=== PATIENT | female | born 1965 | race Caucasian/White ===

== ENCOUNTER → 2024-06-26 07:14 | Outpatient (REF) | payer OTHER, SELFPAY | LOC: HWRAD 07:14 | PROVIDERS: ATTENDING PHYSICIAN Physician Assistant Medical | DX: R14.0 Abdominal distension (gaseous) (principal); K21.9 Gastro-esophageal reflux disease without esophagitis | CPT/HCPCS: 76700 ==

== ENCOUNTER 2024-07-31 06:23 | Day surgery (SDC) | payer OTHER, SELFPAY | END 2024-07-31 13:52 | disposition home or self-care (01) | LOC: GI 06:23 | PROVIDERS: ATTENDING PHYSICIAN Internal Medicine Gastroenterology | DX: R10.13 Epigastric pain (principal); K44.9 Diaphragmatic hernia without obstruction or gangrene | CPT/HCPCS: 43239; 88305; 88342 ==